=== PATIENT | female | born 1990 | race Caucasian/White ===

== ENCOUNTER 2016-11-08 16:51 | Emergency (ER) | payer MEDICAID, OTHER ==
--- NOTE | 2016-11-08 17:13 | ED Physician Chart ---
Chief Complaint/HPI - Patient Information Date Seen:: 11/08/16 Time Seen:: 17:08 Chief Complaint:: anxiety History of Present Illness:: pt is here in distress and is crying and unable to give hx on her own. bf gives most hx. pt began hrs ago w anxious, sob, tingly in b limbs and cramps of b hands. no trauma hx. pt has hx of anxiety in past which seemed same as this episode. she was last on med for anxiety 1 yr ago and has no meds at home for this. took no meds prior to ed. no fever. no n/v/d. no cp. no abd p. feels sob . anxious jittery. no edema. 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 pt has had back p x months that is same today. pt began w anxiety episode at 4pm..she and her bf had a fight yesterday because she thinks he is cheating on her and gets very shaky in past w such altercations..same as today. she has a L[place]S now but no hx of trauma or rash or fever or neck p or neuro change. a recent dx of chlamydia was made and pt received tx from pmd for this (but maybe is source of relationship trouble and anxiety?) she has 2 regular meds at home including some type of rx pain med for back but has no idea what the meds are. asked them to call home and try to figure it out. she says she has not run out of pain med. Allergies:: Allergies Allergy/AdvReac Type Severity Reaction Status Date / Time No Known Allergies Allergy Verified 11/08/16 17:00 Vitals:: Vital Signs - 8 hr 11/08/16 17:00 Temp 99.7 F HR 104 RR 20 BP 125/77 O2 Sat % 100 Historian:: Patient, Friend Review of Systems - Review of Systems General/Constitutional: No fever, No chills, No weight loss, No weakness, No diaphoresis, No edema, No loss of appetite Skin: No skin lesions, No rash, No bruising Head: No headache, No light-headedness Eyes: No loss of vision, No pain, No diplopia ENT: No earache, No nasal drainage, No sore throat, No tinnitus Neck: No neck pain, No swelling, No thyromegaly, No stiffness, No mass noted Cardio Vascular: No chest pain, No palpitations, No PND, No orthopnea, No edema Pulmonary: No SOB, No cough, No sputum, No wheezing GI: No nausea, No vomiting, No diarrhea, No pain, No melena, No hematochezia, No constipation, No hematemesis G/U: No dysuria, No frequency, No hematuria Musculoskeletal: No bone or joint pain, No back pain, No muscle pain Endocrine: No polyuria, No polydipsia Psychiatric: Prior psych history, No depression, Anxiety, No suicidal ideation Hematopoietic: No bruising, No lymphadenopathy Allergic/Immuno: No urticaria, No angioedema Neurological: No syncope, No focal symptoms, No weakness, No paresthesia, No headache, No seizure, No dizziness, No confusion, No vertigo Past Medical History - Past Medical History Past Medical History: Other (anxiety, chronic back pain x months w no change) Social History: Other (has boyfriend) Surgical History: other (tubal ligation) Psychiatricy History: Other (anxiety) Medication: Reviewed Family Medical History - Family Member Mother Living Status: Still Living Other Medical History: no med. prob. Physical Exam - Physical Examination General/Constitutional: Awake, Well-developed, well-nourished, Alert, No distress, GCS 15, Non-toxic appearing, Ambulatory Other Gen/Cons comments:: speaks honduran but cant communicate due to feels too anxious and is crying/ shaking. pt alert and is talking and aware of suroundings but she is crying and unable to get her to engage w me in conversation ...though she will talk to bf some. b hands held clenched in cramped position. no obv neuro defecit. Head: Atraumatic Eyes: Lids, conjuctiva normal, PERRL, EOMI Skin: Nl inspection, No rash, No skin lesions, No ecchymosis, Well hydrated, No lymphadenopathy ENMT: External ears, nose nl, Nasal exam nl, Lips, teeth, gums nl Neck: Nontender, Full ROM w/o pain, No JVD, No nuchal rigidity, No bruit, No mass, No stridor Respiratory: Nl effort/Exclusion, Clear to Auscultation, No Wheeze/Rhonchi/Rales Cardio Vascular: RRR, No murmur, gallop, rubs, NL S1 S2 GI: No tenderness/rebounding/guarding, No organomegaly, No hernia, Normal BS's, Nondistended, No mass/bruits, No McBurney tenderness : No CVA tenderness Extremities: No tenderness or effusion, Full ROM, normal strength in all extremities, No edema, Normal digits & nails Neuro/Psych: Alert/oriented, DTR's symmetric, Normal sensory exam, Normal motor strength, Judgement/insight normal, Mood normal, Normal gait, No focal deficits Misc: normal gait, Normal back, No paraspinal tenderness Labs/Radiology/EKG Results - Lab Results Results: Laboratory Tests 11/08/16 11/08/16 11/08/16 17:18 17:18 17:18 WBC 9.1 RBC 4.27 Hgb 13.1 Hct 39.3 MCV 92.1 MCH 30.6 MCHC Differential 33.3 RDW 11.9 Plt Count 266 MPV 7.6 Neutrophils % 57.9 Lymphocytes % 34.1 Monocytes % 5.0 Eosinophils % 0.8 Basophils % 2.2 H Sodium 133 L Potassium 2.9 L* Chloride 103 Carbon Dioxide 21.2 Anion Gap 11.7 BUN 12 Creatinine 0.7 Est GFR ( Amer) > 60.0 Est GFR (Non-Af Amer) > 60.0 BUN/Creatinine Ratio 17.1 Glucose 120 H Calcium 9.7 Total Bilirubin 0.6 AST 18 ALT 9 Alkaline Phosphatase 54 Troponin I 0.01 Total Protein 7.3 Albumin 4.3 Globulin 3.0 Albumin/Globulin Ratio 1.4 - EKG Interpretations EKG Time:: 17:15 Rate & Rhythm: nsr 81 [place]: 80 Intervals: qtc 445 Comments:: nrml st//t waves ED Septic Shock - . Is Septic Shock (SBP<90, OR Lactate>4 mmol\L) present?: No - <6hrs of presentation: Vital Signs: Vital Signs - 8 hr 11/08/16 17:00 Temp 99.7 F HR 104 RR 20 BP 125/77 O2 Sat % 100 Reassessment (Disposition) - Reassessment Reassessment:: 6;20p- re-exam. pt now calm..breathing easily and can speak to me now. she denies pain now...feels much better. no neuro defecits. labs and ecg ok. pt has not made a urine yet. she is getting 1 L ivf and k+ replacement 40 MEQ. Reassessment Condition:: Improved - Diagnosis Diagnosis:: 1 anxiety attack 2 low K+ 3 chronic back pain - Aftercare/Follow up Instructions Aftercare/Follow-Up Instructions:: Counseled pt & family regarding lab results/ diagnosis & need follow up Medication Prescribed:: ativan 0.5mg #20 RX - Patient Disposition Discharge/Transfer:: Home Condition at Disposition:: Improved
[2016-11-08 17:25] LABS: % BASOPHILS 2.2 % (0.0-2.0); % EOSINOPHILS 0.8 % (0.0-5.0); % LYMPHOCYTES 34.1 % (20.0-50.0); % NEUTROPHILS 57.9 % (40.0-80.0); HEMATOCRIT 39.3 % (35.0-45.0); HEMOGLOBIN 13.1 gm/dL (11.7-15.5); MEAN CELL VOLUME 92.1 fl (81-100); MEAN CORPUSCULAR HEMOGLOBIN 30.6 pg (27.0-31.0); MEAN CORPUSCULAR HGB CONC 33.3 pg (28.0-36.0); MEAN PLATELET VOLUME 7.6 fl; NEUTROPHILE ABSOLUTE 5.2 Th/cmm (1.8-8.0); PLATELET COUNT 266 Th/cmm (150-400); RED BLOOD COUNT 4.27 Mil/cmm (3.80-5.10); RED CELL DISTRIBUTION WIDTH 11.9 % (11.5-20.0); WHITE BLOOD COUNT 9.1 Th/cmm (4.8-10.8)
[2016-11-08 17:41] LABS: ALB/GLOB RATIO 1.4 (1.0-1.8); ALKALINE PHOSPHATASE 54 U/L (34-104); ANION GAP 11.7 (7.0-16.0); BILIRUBIN,TOTAL 0.6 mg/dL (0.3-1.0); BUN - UREA NITROGEN 12 mg/dL (7-25); BUN/CREATININE RATIO 17.1; CALCIUM SERUM 9.7 mg/dL (8.6-10.3); CARBON DIOXIDE 21.2 mEq/L (21.0-31.0); CHLORIDE 103 mEq/L (98-107); CREATININE - SERUM 0.7 mg/dL (0.6-1.2); GLUCOSE 120 mg/dL (70-105); SGOT 18 U/L (13-39); SGPT/ALT 9 U/L (7-52); SODIUM SERUM 133 mEq/L (136-145)
[2016-11-08 17:45] LABS: POTASSIUM SERUM 2.9 mEq/L (3.5-5.1)
[2016-11-08] MEDS ORDERED: Sodium Chloride 0.9% 1,000 ML IV ONE (17:48)
[2016-11-08] MEDS ORDERED: Potassium Chloride 40 MEQ, Lidocaine 1% 20mL Vial 25 MG in Sodium Chloride 0.9% 250 ML IV ONE (17:48)
[2016-11-08] MEDS ORDERED: KCL 20mEq/100mL Premix 20 MEQ/100 ML PIGGYBACK IV ONE ×2 (18:02→19:49)
[2016-11-08 19:14] LABS: URINE BILIRUBIN NEGATIVE (NEGATIVE); URINE BLOOD NEGATIVE (NEGATIVE); URINE GLUCOSE (UA) NEGATIVE (NEGATIVE); URINE KETONE TRACE mg/dL (NEGATIVE); URINE PROTEIN NEGATIVE (NEGATIVE); URINE UROBILINOGEN 0.2 E.U./dL (0.2 - 1.0)
[2016-11-08 19:20] LABS: URINE BACTERIA FEW /hpf (NONE SEEN); URINE COLOR YELLOW; URINE EPITHELIAL CELLS MODERATE /lpf (FEW); URINE RBC 0-1 /hpf (0-5); URINE WBC 0-2 /hpf (0-5)
== END 2016-11-08 22:45 | disposition home or self-care (01) ==
LOC: ER 16:51
DX: F41.9 Anxiety disorder, unspecified (principal); E87.6 Hypokalemia; G89.29 Other chronic pain; M54.9 Dorsalgia, unspecified
CPT/HCPCS: 99285; 96365; 96366; 96375; 93005; 84484; 36415; 85025; 81001; 81025; 80053; J3480 ×2; J2060; J7030

== ENCOUNTER 2017-10-16 17:55 | Emergency (ER) | payer OTHER ==
--- NOTE | 2017-10-16 18:27 | ED Physician Chart ---
ED Chief Complaint/HPI - Patient Information Date Seen:: 10/16/17 Time Seen:: 18:05 Chief Complaint:: abdominal pain History of Present Illness:: Patient's had left lower quadrant abdominal pain for 4 days. Patient is nauseated without vomiting or diarrhea. Patient had 1 day of vaginal bleeding 3 days ago and very slight vaginal bleeding since then. Allergies:: Allergies Allergy/AdvReac Type Severity Reaction Status Date / Time No Known Allergies Allergy Verified 11/08/16 17:00 Vitals:: Vital Signs - 8 hr 10/16/17 18:09 Temp 98.1 F HR 67 RR 17 BP 106/58 O2 Sat % 100 Historian:: Patient Review:: Nurse's Note Reviewed <Tobias John - Last Filed: 10/16/17 18:21> - Patient Information Allergies:: Allergies Allergy/AdvReac Type Severity Reaction Status Date / Time No Known Allergies Allergy Verified 11/08/16 17:00 Vitals:: Vital Signs - 8 hr 10/16/17 18:09 Temp 98.1 F HR 67 RR 17 BP 106/58 O2 Sat % 100 <Oswald Moran - Last Filed: 10/16/17 21:03> ED Review of Systems - Review of Systems General/Constitutional: No fever, No chills Skin: No skin lesions Head: No headache Eyes: No loss of vision ENT: No earache Neck: No neck pain, No swelling Cardio Vascular: No chest pain, No palpitations Pulmonary: No SOB GI: Nausea, No vomiting, No diarrhea G/U: No dysuria Musculoskeletal: No bone or joint pain Endocrine: No polyuria Psychiatric: No prior psych history, No depression Hematopoietic: No bruising Allergic/Immuno: No urticaria Neurological: No syncope <Tobias John - Last Filed: 10/16/17 18:21> ED Past Medical History - Past Medical History Past Medical History: No significant medical hx Family History: None Social History: Non Smoker, No Alcohol Surgical History: (2 sections) Psychiatricy History: None Medication: None <Tobias John - Last Filed: 10/16/17 18:21> Family Medical History - Family Member Mother Living Status: Still Living <Tobias John - Last Filed: 10/16/17 18:21> ED Physical Exam - Physical Examination General/Constitutional: Awake, Well-developed, well-nourished, Alert, No distress, GCS 15, Non-toxic appearing, Ambulatory Head: Atraumatic Eyes: Lids, conjuctiva normal, PERRL, EOMI Skin: Nl inspection, No rash, No skin lesions, No ecchymosis, Well hydrated, No lymphadenopathy ENMT: External ears, nose nl, Nasal exam nl, Lips, teeth, gums nl Neck: Nontender, Full ROM w/o pain, No JVD, No nuchal rigidity, No bruit, No mass, No stridor Respiratory: Nl effort/Exclusion, Clear to Auscultation, No Wheeze/Rhonchi/Rales Cardio Vascular: RRR, No murmur, gallop, rubs, NL S1 S2 GI: No hernia, Normal BS's, Nondistended, No mass/bruits, No McBurney tenderness Other GI comments:: Suprapubic and left lower quadrant tenderness : No CVA tenderness, NL external genitalia, No discharge Other comments:: Bimanual pelvic exam: 2 out of 4 cervical motion and left adnexal tenderness; no right adnexal tenderness; uterus not enlarged to palpation Extremities: No tenderness or effusion, Full ROM, normal strength in all extremities, No edema, Normal digits & nails Neuro/Psych: Alert/oriented, DTR's symmetric, Normal sensory exam, Normal motor strength, Judgement/insight normal, Mood normal, Normal gait, No focal deficits Misc: Normal back, No paraspinal tenderness <Tobias John - Last Filed: 10/16/17 18:21> ED Labs/Radiology/EKG Results - Lab Results Results: Laboratory Tests 10/16/17 10/16/17 10/16/17 18:00 18:00 18:19 WBC RBC Hgb Hct MCV MCH MCHC Differential RDW Plt Count MPV Neutrophils % Lymphocytes % Monocytes % Eosinophils % Basophils % Urine Source CLEAN C Urine Color YELLOW Urine Clarity CLEAR Urine pH 6.0 Ur Specific [place] <= 1.005 Urine Protein NEGATIVE Urine Glucose (UA) NEGATIVE Urine Ketones NEGATIVE Urine Blood LARGE H Urine Nitrate NEGATIVE Urine Bilirubin NEGATIVE Urine Urobilinogen 0.2 Ur Leukocyte Esterase NEGATIVE Urine RBC 0-2 Urine WBC 0-2 Ur Epithelial Cells FEW Urine Bacteria FEW Urine Test NEGATIVE POC Ur Test Negative 10/16/17 18:25 WBC 7.9 RBC 4.17 Hgb 12.8 Hct 37.5 L MCV 90.0 MCH 30.6 MCHC Differential 34.0 RDW 12.1 Plt Count 305 MPV 7.1 Neutrophils % 63.6 Lymphocytes % 27.4 Monocytes % 6.8 Eosinophils % 1.7 Basophils % 0.5 Urine Source Urine Color Urine Clarity Urine pH Ur Specific [place] Urine Protein Urine Glucose (UA) Urine Ketones Urine Blood Urine Nitrate Urine Bilirubin Urine Urobilinogen Ur Leukocyte Esterase Urine RBC Urine WBC Ur Epithelial Cells Urine Bacteria Urine Test POC Ur Test <Oswald Moran - Last Filed: 10/16/17 21:03> ED Assessment - Assessment General Assessment: Patient signed out to Dr. Moran at 1900. <Tobias John - Last Filed: 10/16/17 18:21> ED Septic Shock - <6hrs of presentation: Vital Signs: Vital Signs - 8 hr 10/16/17 18:09 Temp 98.1 F HR 67 RR 17 BP 106/58 O2 Sat % 100 <Tobias John - Last Filed: 10/16/17 18:21> - <6hrs of presentation: Vital Signs: Vital Signs - 8 hr 10/16/17 18:09 Temp 98.1 F HR 67 RR 17 BP 106/58 O2 Sat % 100 <Oswald Moran - Last Filed: 10/16/17 21:03> Assessment/Plan <Tobias John - Last Filed: 10/16/17 18:21> - Assessment/Plan Assessment: PT LOWER PELVIC PAIN IMPROVED US ONLY SMALL FOLLICLES BILATERALY SMALL AMOUNT IN CULDESAC <Oswald Moran - Last Filed: 10/16/17 21:03> - Problem List Patient Problems: All Active Problems LOWER ABDOMINAL/PELVIC PAIN WITH NAUSEA (Acute)
[2017-10-16 18:32] LABS: URINE MICROSCOPIC INDICATED? YES; URINE SOURCE CLEAN C
[2017-10-16 18:32] LABS: % BASOPHILS 0.5 % (0.0-2.0); % EOSINOPHILS 1.7 % (0.0-5.0); % LYMPHOCYTES 27.4 % (20.0-50.0); % MONOCYTES 6.8 % (2.0-10.0); % NEUTROPHILS 63.6 % (40.0-80.0); EOSINOPHILE ABSOLUTE 0.1 Th/cmm (0.1-0.4); HEMATOCRIT 37.5 % (41.0-60); HEMOGLOBIN 12.8 gm/dL (12-16); LYMPHOCYTE ABSOLUTE 2.2 Th/cmm (1.5-3.0); MEAN CORPUSCULAR HEMOGLOBIN 30.6 pg (27.0-31.0); MEAN PLATELET VOLUME 7.1 fl; MONOCYTE ABSOLUTE 0.5 Th/cmm (0.3-1.0); NEUTROPHILE ABSOLUTE 5.1 Th/cmm (1.8-8.0); PLATELET COUNT 305 Th/cmm (150-400); RED BLOOD COUNT 4.17 Mil/cmm (3.80-5.10); RED CELL DISTRIBUTION WIDTH 12.1 % (11.5-20.0); WHITE BLOOD COUNT 7.9 Th/cmm (4.8-10.8)
[2017-10-16 18:34] LABS: URINE BILIRUBIN NEGATIVE (NEGATIVE); URINE BLOOD LARGE (NEGATIVE); URINE GLUCOSE (UA) NEGATIVE (NEGATIVE); URINE KETONE NEGATIVE (NEGATIVE); URINE LEUKOCYTE ESTERASE NEGATIVE (NEGATIVE); URINE NITRATE NEGATIVE (NEGATIVE); URINE PROTEIN NEGATIVE (NEGATIVE); URINE UROBILINOGEN 0.2 E.U./dL (0.2 - 1.0)
[2017-10-16 18:41] LABS: URINE CLARITY CLEAR (CLEAR); URINE COLOR YELLOW
[2017-10-16 18:46] LABS: URINE BACTERIA FEW /hpf (NONE SEEN); URINE EPITHELIAL CELLS FEW /lpf (FEW); URINE RBC 0-2 /hpf (0-5); URINE WBC 0-2 /hpf (0-5)
--- NOTE | 2017-10-17 08:43 | Diagnostic Imaging Report ---
Pelvic ultrasound HISTORY: Pain Transabdominal and transvaginal sonographic technique were utilized. There is a normal uterine size (6.9 x 3.9 x 5.6 cm). Uterus is retroflexed. No focal myometrial lesions are seen. The major measures 7.7 mm thickness. The right ovary measures 2.8 x 1.4 x 2.9 cm. Cysts a small 0.0 cm are seen. The left ovary measures 2.6 x 2.2 x 1.6 cm. Subcentimeter cysts are noted. Small amount of free fluid is seen in the cul-de-sac region of the pelvis. IMPRESSION: 1. Findings consistent with bilateral ovarian follicular changes 2. Small amount of free fluid within the cul-de-sac region of the pelvis. This may be on a physiologic basis and should be correlated clinically and with the menstrual status. 3. Endometrial thickness equals 7.7 mm. The findings should be correlated clinically and with menstrual status.
== END 2017-10-16 21:30 | disposition home or self-care (01) ==
LOC: ER 17:55
DX: R10.32 Left lower quadrant pain (principal); R10.2 Pelvic and perineal pain; R11.0 Nausea; Z98.890 Other specified postprocedural states
CPT/HCPCS: 36415-UA; 76856-TC; 81001-TC; 81025-TC; 85025-TC

== ENCOUNTER 2017-10-20 04:33 | Emergency (ER) | payer OTHER ==
--- NOTE | 2017-10-20 05:21 | ED Physician Chart ---
ED Chief Complaint/HPI - Patient Information Date Seen:: 10/20/17 Time Seen:: 05:05 Chief Complaint:: headache History of Present Illness:: Patient developed occipital headache at 0400 this morning. The headache is now gone. She also feels anxious. Patient took Zoloft for the first time at 1900 last night. At 2100 she took medicine for inflammation of her ovaries the name of which she does not know. She has been taking this latter medicine for the last 2-3 days. Allergies:: Allergies Allergy/AdvReac Type Severity Reaction Status Date / Time No Known Allergies Allergy Verified 11/08/16 17:00 Vitals:: Vital Signs - 8 hr 10/20/17 04:34 Temp 98.5 F HR 57 RR 18 BP 119/72 O2 Sat % 97 Historian:: Patient ED Review of Systems - Review of Systems General/Constitutional: No fever, No chills, No weight loss, No weakness, No diaphoresis, No edema, No loss of appetite Skin: No skin lesions, No rash, No bruising Head: No headache, No light-headedness Eyes: No loss of vision, No pain, No diplopia ENT: No earache, No nasal drainage, No sore throat, No tinnitus Neck: No neck pain, No swelling, No thyromegaly, No stiffness, No mass noted Cardio Vascular: No chest pain, No palpitations, No PND, No orthopnea, No edema Pulmonary: No SOB, No cough, No sputum, No wheezing GI: No nausea, No vomiting, No diarrhea, No pain, No melena, No hematochezia, No constipation, No hematemesis G/U: No dysuria, No frequency, No hematuria Musculoskeletal: No bone or joint pain, No back pain, No muscle pain Endocrine: No polyuria, No polydipsia Psychiatric: No prior psych history, No depression, Anxiety, No suicidal ideation, Other (Zoloft prescribed recently for anxiety) Hematopoietic: No bruising, No lymphadenopathy Allergic/Immuno: No urticaria, No angioedema Neurological: No syncope, No focal symptoms, No weakness, No paresthesia, Headache, No seizure, No dizziness, No confusion, No vertigo ED Past Medical History - Past Medical History Past Medical History: No significant medical hx Family History: None Social History: Non Smoker, No Alcohol Surgical History: Psychiatricy History: Other (possibly anxiety) Medication: Reviewed Family Medical History - Family Member Mother History Unknown: Yes Living Status: Still Living ED Physical Exam - Physical Examination General/Constitutional: Awake, Well-developed, well-nourished, Alert, No distress, GCS 15, Non-toxic appearing, Ambulatory Other Gen/Cons comments:: Slight lower extremity tremors noted Head: Atraumatic Eyes: Lids, conjuctiva normal, PERRL, EOMI Other Eyes comments:: Optic disks sharp Skin: Nl inspection, No rash, No skin lesions, No ecchymosis, Well hydrated, No lymphadenopathy ENMT: External ears, nose nl, Nasal exam nl, Lips, teeth, gums nl Neck: Nontender, Full ROM w/o pain, No JVD, No nuchal rigidity, No bruit, No mass, No stridor Respiratory: Nl effort/Exclusion, Clear to Auscultation, No Wheeze/Rhonchi/Rales Cardio Vascular: RRR, No murmur, gallop, rubs, NL S1 S2 GI: No tenderness/rebounding/guarding, No organomegaly, No hernia, Normal BS's, Nondistended, No mass/bruits, No McBurney tenderness : No CVA tenderness Extremities: No tenderness or effusion, Full ROM, normal strength in all extremities, No edema, Normal digits & nails Neuro/Psych: Alert/oriented, DTR's symmetric, Normal sensory exam, Normal motor strength, Judgement/insight normal, Mood normal, Normal gait, No focal deficits Misc: Normal back, No paraspinal tenderness ED Assessment - Assessment General Assessment: About 2-3 minutes after being given the Benadryl patient felt better and her leg tremors were no longer present suggesting she had an extrapyramidal reaction to Zoloft. Patient will be prescribed Benadryl 50 mg #12 to take 1 4 times a day. She was informed that her symptoms may be due to a reaction to Zoloft ED Septic Shock - . Is Septic Shock (SBP<90, OR Lactate>4 mmol\L) present?: No - <6hrs of presentation: Vital Signs: Vital Signs - 8 hr 10/20/17 04:34 Temp 98.5 F HR 57 RR 18 BP 119/72 O2 Sat % 97 ED Reassessment (Disposition) - Reassessment Reassessment Condition:: Improved - Diagnosis Diagnosis:: Extraparametal reaction - Aftercare/Follow up Instructions Medication Prescribed:: Benadryl 50 mg #12 to take 1 4 times a day - Patient Disposition Discharge/Transfer:: Home Condition at Disposition:: Stable, Improved
== END 2017-10-20 05:47 | disposition home or self-care (01) ==
LOC: ER 04:33
DX: T39.1X1A Poisoning by 4-Aminophenol derivatives, accidental (unintentional), initial encounter (principal); R51 Headache; F41.9 Anxiety disorder, unspecified; R25.1 Tremor, unspecified; Z98.890 Other specified postprocedural states; Y92.89 Other specified places as the place of occurrence of the external cause
CPT/HCPCS: J1200; Z7502